=== PATIENT | male | born 1955 | race Caucasian/White ===

== ENCOUNTER 2016-10-28 | Inpatient (IN) | payer OTHER ==
[~2016-10-28] MED LIST: DISULFIRAM250 MG PO; FLUOXETINE HCL40 M1 PO; NORVASC PO; PROMETHAZINE-D240 ML PO; SINGULAIR PO; TENORMIN50 MG PO; ZESTRIL40 MG PO
--- NOTE | ~2016-10-28 | PN ---
Unit #: [id number] #: [id number] Patient: NOMAN BURKETT III [id number] [facility] [address] [place] [address] [id number] MR#: [id number] NAME: NOMAN BURKETT III ROOM: [facility] Age: 61 Sex: M Admission Date: 10/28/2016 : 1955 Attending Physician: Sudeep Andersen M.D. Admitting Physician: Sudeep Andersen M.D. Primary Care Physician: Alex Hooks PROGRESS NOTES DATE 10/30/2016 DISCUSSION The patient remains seclusive to room and continues to complain of significant symptoms of alcohol withdrawal. We expect discharge by the weekend with followup to take place through the auspices of [facility] and chemical dependence treatment resources in the [facility]. Dictated by... Sudeep Andersen M.D. CB/domingo TD: 10/30/2016 23:05 JOB #: [id number] [facility] PROGRESS NOTES Page 1 of 1 X Sudeep Andersen MD PROGRESS NOTE
--- NOTE | ~2016-10-28 | HP ---
Unit #: [id number] #: [id number] Patient: NOMAN BURKETT III [id number] [place] [address] [id number] MR#: [id number] NAME: NOMAN BURKETT III ROOM: P177 Age: 61 Sex: M Admission Date: 10/28/2016 : 1955 Attending Physician: Sudeep Andersen M.D. Admitting Physician: Sudeep Andersen M.D. Primary Care Physician: Martha Rodriguez Aprn HISTORY AND PHYSICAL HISTORY OF PRESENT ILLNESS Noman is a 61 year old admitted to [facility] because of his continued abuse of alcohol. He has had numerous admissions to this facility for the same. PAST MEDICAL HISTORY 1. Long history of alcohol abuse. He continues to drink. 2. COPD. 3. History of atrial fibrillation. 4. High blood pressure. 5. History of gout. 6. Obesity. PAST SURGICAL HISTORY Nothing reported. ALLERGIES No known drug allergies. SOCIAL HISTORY Smokes 2 packs per day. Drinks fifth of liquor on a daily basis. Denies illicit drug use. FAMILY HISTORY Medically noncontributory. REVIEW OF SYSTEMS CONSTITUTIONAL: No fever or chills. HEENT: Denies any sore throat, ear pain or runny nose. CARDIOVASCULAR: Denies chest pain, irregular heart rhythm or palpitations. CHEST: Denies shortness of breath or cough. No hemoptysis. GASTROINTESTINAL: Denies nausea, vomiting, diarrhea or chronic constipation. ENDOCRINE: Denies history of increased thirst or urination. No recent significant weight loss or gain. GENITOURINARY: Denies dysuria, frequency, or hematuria. SKIN: Denies any rashes. HEMATOLOGIC: Denies history of increased bleeding or bruising. MUSCULOSKELETAL: Denies any hot, swollen joints. No generalized muscle pain. NEUROLOGIC: Denies problems with vision or speech. No frequent, severe headaches. No numbness, tingling or weakness in any extremities. Denies loss of bladder or bowel control. Unit #: [id number] #: [id number] Patient: NOMAN BURKETT III CURRENT MEDICATIONS 1. Detox protocol. 2. Antabuse 250 mg q. day. 3. Prozac 60 mg q. day. 4. Zestril 40 mg q. day. 5. Eliquis 5 mg b.i.d. 6. Lopressor 100 mg b.i.d. PHYSICAL EXAMINATION GENERAL: Alert. No apparent distress. VITAL SIGNS: Blood pressure 146/64, heart rate 80, respirations 16, and temperature 98.6. WEIGHT: 230. HEIGHT: 6 feet 0 inches. SKIN: Warm and dry without rash or lesion. HEENT: Normocephalic. TMs not viewed. Oral and nasal passages clear. Conjunctivae clear. PERRLA. EOMs intact. NECK: Supple without lymphadenopathy or thyromegaly. HEART: Regular rate and rhythm without murmur. LUNGS: Clear. ABDOMEN: Soft, nontender. : Not done. EXTREMITIES: No evidence of cyanosis, clubbing or edema. Moves all without focal deficit. NEUROLOGICAL: Grossly within normal limits. Cranial Nerves: II: Visual ramirez are intact. III, IV AND : Extraocular movements are intact. Pupils are equal, round and reactive to light. V: Facial sensation is grossly normal. VII: Facial movements and expression are normal. VIII: Auditory acuity grossly intact. IX, X: Uvula is midline. Phonation is normal. XI: Patient shrugs shoulders and turns head normally. XII: Tongue protrudes in the midline. Sensory and Motor Function: Sensory and motor sensation is grossly normal. Motor: moves all extremities well. Coordination: Gait is normal. Deep Tendon Reflexes: Intact. IMPRESSION Psychiatric admission. RECOMMENDATIONS PSYCHIATRIC: Per psychiatrist. MEDICAL: 1. I see no contraindication to participate in this facility's activities. 2. Detox per protocol. 3. Continue Zestril, Eliquis, and Lopressor. No need to follow PT/INRs. MEDICAL PROGNOSIS Good. MEDICAL CONDITION Stable. Dictated by... Radha Peterson P.A.-C. for Unit #: [id number] #: [id number] Patient: NOMAN BURKETT Noemy Barnes/didier TD: 10/29/2016 07:17 JOB #: [id number] HISTORY AND PHYSICAL Page 1 of 1 X Radha Peterson X HISTORY AND PHYSICAL
--- NOTE | ~2016-10-28 | PA ---
Unit #: [id number] #: [id number] Patient: NOMAN BURKETT III [id number] [place] [address] [id number] MR#: [id number] NAME: NOMAN BURKETT III ROOM: [facility]177 Age: 61 Sex: M Admission Date: 10/28/2016 : 1955 Date of Assessment: 10/28/2016 Attending Physician: Sudeep Andersen M.D. Admitting Physician: Sudeep Andersen M.D. Primary Care Physician: Martha Rodriguez Aprn PSYCHIATRIC ASSESSMENT IDENTIFYING INFORMATION The patient is a 61-year-old white male admitted with a recent relapse of alcohol use. CHIEF COMPLAINT I relapsed INFORMANT The patient, reliability is fair. HISTORY OF PRESENT ILLNESS The patient is a 61-year-old white male well known to this physician for multiple previous admissions to this facility related to his history of alcohol dependence. He is readmitted reporting a three week relapse in which has been drinking two fifths of vodka on a daily basis. The patient is currently living with his ex- and is not working. He denies any suicidal or homicidal ideation. For more complete history of present illness please refer to previous dictated notes. PAST PSYCHIATRIC HISTORY Reviewed no changes. PAST MEDICAL HISTORY Reviewed no changes. MEDICATIONS Metoprolol, lisinopril, fluoxetine, Eliquis, Antabuse. ALLERGIES None. FAMILY HISTORY Noncontributory SOCIAL HISTORY Reviewed no changes. MENTAL STATUS EXAMINATION At this time reveals the patient to be a well-developed, well-nourished white male, appearing his stated age. He is in no apparent physical distress at the time of examination. He is awake, alert, and oriented in all spheres. His mood is mildly dysphoric. His affect constricted. Unit #: [id number] #: [id number] Patient: NOMAN BURKETT III Speech is generally relevant and coherent. There are no gross deficits in memory or cognition noted. Intelligence is judged to be in the average range based on fund of knowledge. The patient is cooperative throughout the interview. He is currently denying suicidal or homicidal ideation or psychotic features. His judgment and insight appear to be reasonably intact. ASSETS AND LIABILITIES ASSETS: To be assessed. LIABILITIES: Ongoing substance use. ADMITTING DIAGNOSES Alcohol use disorder, hypertension, history of DVT, atrial fibrillation. PSYCHIATRIC PLAN/TREATMENT GOALS The patient remains hospitalized for safety and stabilization. A routine detoxification protocol for alcohol has been initiated and all previously prescribed medications will be continued including Eliquis. We will check a PT INR. ESTIMATED LENGTH OF STAY 3 to 5 days with followup to take place through the auspices of [facility] mental health resources. Dictated by... Sudeep Andersen M.D. SADE/domingo TD: 10/29/2016 05:33 JOB #: [id number] PSYCHIATRIC ASSESSMENT Page 1 of 1 X Sudeep Andersen MD X PSYCHIATRIC ASSESSMENT
--- NOTE | ~2016-10-28 | PN ---
Unit #: [id number] #: [id number] Patient: NOMAN BURKETT III [id number] [facility] [address] [place] [address] [id number] I MR#: [id number] NAME: NOMAN BURKETT III ROOM: [facility] Age: 61 Sex: M Admission Date: 10/28/2016 : 1955 Attending Physician: Sudeep Andersen M.D. Admitting Physician: Sudeep Andersen M.D. Primary Care Physician: Alex Hooks PROGRESS NOTES DATE 10/29/2016 DISCUSSION The patient remains abed and continues to complain of significant symptoms of alcohol withdrawal. I have encouraged him to increase his participation within the therapeutic milieu once able to do so. Dictated by... Sudeep Andersen M.D. CB/gaby TD: 10/30/2016 08:51 JOB #: [id number] [facility] PROGRESS NOTES Page 1 of 1 X Sudeep Andersen MD X PROGRESS NOTE
--- NOTE | ~2016-10-28 | DS ---
Unit #: [id number] #: [id number] Patient: NOMAN BURKETT III [id number] [facility] [address] [place] [address] [id number] I MR#: [id number] NAME: NOMAN BURKETT III ROOM: [facility] Age: 61 Sex: M Admission Date: 10/28/2016 : 1955 Discharge Date: 10/31/2016 Attending Physician: Sudeep Andersen M.D. Primary Care Physician: Martha Rodriguez Aprn DISCHARGE SUMMARY REASON FOR ADMISSION The patient is a 61-year-old white male, admitted to the [facility] unit for alcohol detox. HOSPITAL COURSE The patient was admitted to the [facility] unit and placed on routine detoxification protocol for alcohol. His home medications were continued. By 11/02/2016, the patient had participated to no significant degree within the therapeutic milieu but was exhibiting little in the way of signs or symptoms of withdrawal. As per his request, discharge was ordered. FINAL DIAGNOSES Alcohol use disorder, history of deep venous thrombosis, hypertension. DISPOSITION ON DISCHARGE The patient is discharged on the following medications: Antabuse 250 mg once daily for alcohol abuse, Prozac 60 mg daily for depression, Zestril 40 mg once daily for hypertension, Lopressor 100 mg b.i.d. for hypertension, Eliquis 5 mg once daily for anticoagulation. DISCHARGE INSTRUCTIONS No dietary or physical restrictions were placed upon the patient at the time of discharge. FOLLOWUP Followup will take place through the auspices of community mental health resources in the [facility]. PROGNOSIS The patient's prognosis is considered fair. Dictated by... Sudeep Andersen M.D. CB/judy TD: 10/31/2016 14:17 JOB #: [id number] Unit #: [id number] #: [id number] Patient: NOMAN BURKETT III DISCHARGE SUMMARY Page 1 of 1 X Sudeep Andersen MD X DISCHARGE SUMMARY
[2016-10-29 09:48] LABS: PROTHROMBIN TIME (PATIENT) 10.6 SECONDS (10.0-11.7)
== END 2016-10-31 19:39 | disposition home or self-care (01) | DRG 897 ==
LOC: P1E 11:20
PROVIDERS: Specialist
PROC: HZ2ZZZZ Detoxification Services for Substance Abuse Treatment (ICD-10-PCS; principal; 2016-10-28)
DX: F10.20 Alcohol dependence, uncomplicated (principal); I48.91 Unspecified atrial fibrillation; I10 Essential (primary) hypertension; Z86.718 Personal history of other venous thrombosis and embolism; J44.9 Chronic obstructive pulmonary disease, unspecified; E66.9 Obesity, unspecified; F17.210 Nicotine dependence, cigarettes, uncomplicated; M10.9 Gout, unspecified
CPT/HCPCS: 85610